=== PATIENT | male | born 2000 | race African-American/Black ===

== ENCOUNTER 2018-12-08 12:03 | Emergency (ER) | payer MEDICAID ==
[~2018-12-08] VITALS: Ht 182.9 cm; Wt 75.0 kg
[2018-12-08] MEDS ORDERED: CEFTRIAXONE SODIUM 250 MG/VIAL IM ONE (13:15)
[2018-12-08] MEDS ORDERED: AZITHROMYCIN 500 MG TABLET PO ONE (13:15)
[2018-12-08 13:49] LABS: CLARITY URINE CLOUDY (CLEAR); COLOR URINE YELLOW (YELLOW); KETONES URINE NEGATIVE (NEGATIVE); LEUKOCYTE ESTERASE URINE 3+ (NEGATIVE); NITRITE URINE NEGATIVE (NEGATIVE); OCCULT BLOOD URINE TRACE (NEGATIVE); PROTEIN URINE NEGATIVE (NEGATIVE); SPECIFIC GRAVITY URINE 1.011 (1.005-1.030)
[2018-12-08 14:00] VITALS: BP 114/72
[2018-12-10 04:12] LABS: CHLAMYDIA TRACHOMATIS NAA Negative (Negative); NEISSERIA GONORRHOEAE NAA Positive (Negative)
== END 2018-12-08 14:15 | disposition home or self-care (01) ==
LOC: ER 12:51
DX: A64 Unspecified sexually transmitted disease (principal); F12.10 Cannabis abuse, uncomplicated; F17.200 Nicotine dependence, unspecified, uncomplicated
CPT/HCPCS: 81003; 87086; 87491; 87591; 96372; 99283; J0696